=== PATIENT | female | born 1965 | race Caucasian/White ===

== ENCOUNTER 2024-01-09 16:22 | Outpatient (CLI) | payer OTHER, SELFPAY ==
--- OUTSIDE RECORDS SUMMARY | 2024-01-09 16:24 | XMS_ITS | Clinical Summary ---
Author Organization [facility] Address [place], [place] [address] Care Team Providers Care Hoisting Engineer Pile Driving Name Role Phone Simón Chiu MD Primary Care Provider [phone] Allergies Active Allergy Reactions Criticality Noted Date Comments Allergenic Extracts Itching Low 02/22/2019 Cephalosporins Rash Low 02/22/2019 Grass Pollen Itching Low 02/22/2019 House Dust Other - Describe In Comment Field Low 02/22/2019 Unlisted Allergen (Include Detail In Comments) Rash Low 02/22/2019 Penicillin V Rash Low 02/22/2019 Medications Medication Sig Dispensed Refills Start Date End Date Status PROAIR HFA 90 MCG/ACTUATION AEROSOL INHALER INHALE TWO PUFFS EVERY 4 TO 6 HOURS NEEDED 9 0 09/28/2006 Active albuterol HFA 90 mcg/actuation inhaler Every 6 Hours as needed Active Active Problems No known active problems Encounters Date Type Department Care Team Description 01/01/2024 Lab Requisition [facility] [phone] Cassandra Farnsworth, EQUIPMENT WASHER from Last 3 Months Immunizations Name Administration Dates Next Due Influenza, IIV3 (Age >=3 years) 03/14/20 05,03/15/2004,03/27/2003,04/27/2002, 03/15/2001 Td (Age >=7 Years) 03/26/1996 Social History Tobacco Use Types Packs/Day Years Used Date Smoking Tobacco: Never Smokeless Tobacco: Never Tobacco Cessation:Counseling Given: Yes Alcohol Use Standard Drinks/Week Comments Yes 0 (1 standard drink = 0.6 oz pur e alcohol) Sex and Gender Information Value Date Recorded Sex Assigned at Not on file Gender Identity Not on file Sexual Orientation Not on file Obstetrics History Last Filed Vital Signs Vital Sign Reading Time Taken Comments Blood Pressure 123/82 03/25/2019 9:19 AM CDT Pulse 65 03/25/2019 9:19 AM CDT Temperature 36.6 ??C (97.8 ??F) 03/25/2019 9:19 AM CD T Respiratory Rate - - Oxygen Saturation 98% 03/25/2019 9:19 AM CDT Inhaled Oxygen Concentration - - Weight 71.1 kg (156 lb 12.8 oz) 02/22/2019 9:30 AM CDT Height 162.5 cm (5' 3.98) 02/22/2019 9:30 AM CD T Body Mass Index 26.93 02/22/2019 9:30 AM CDT Plan of Treatment Health Maintenance Due Date Last Done Comments Tdap 1976 Depression screening for age 12+ 1977 HIV for age 15-65 1980 Hepatitis C screening for age 18-79 1983 Tetanus booster 03/26/2006 03/26/1996 Colonoscopy through age 75 2010 Lipids for age 45-75 2010 Mammogram for age 45-75 2010 Zoster (shingles) series for age 50+ (1 of 2) 2015 BMI (ht and wt on same day) for age 18+ 02/23/2020 02/22/2019 COVID-19 vaccine series (2022- season) 2023 Influenza for age 50-64 01/28/2024 03/14/20 05, 03/15/2004, 03/27/2003, Additional history exists Pap test for age 21-65 12/28/2026 4, 02/19/2019, 02/19/2019, Additional history exists Pneumococcal series for age 6-64 Aged Out No longer eligible based on patient's age to complete this topic Procedures Procedure Name Priority Date/Time Associated Diagnosis Comments LAB TRACKING EVENT Routine 12/29/2023 1: 58 PM CDT HPV THIN PREP Routine 12/29/2023 1:50 PM CDT from Last 3 Months Results * LAB TRACKING EVENT (12/29/2023 1:58 PM CDT) Other (Other) Client Collect / Unknown 12/29/2023 1:58 PM CDT 01/01/2024 3:36 PM CDT Cassandra Farnsworth NP LAB BILL ONLY Performing Organization Address City/[facility]/ZIP Co de Phone Number [facility] [address] [place] [address], * HPV HIGH RISK (12/29/2023 1:50 PM CDT) TYPE 16 Negative Negative 01/03/2024 4:20 PM CDT [facility] TYPE 18 Negative Negative 01/03/2024 4:20 PM CDT [facility] OTHER HIGH RISK TYPES Negative Negative 01/03/2024 4:20 PM CDT [facility] Other (Cervical) 12/29/2023 1:50 PM CDT 01/02/2024 12:45 PM CDT Narrative [facility] - 01/03/2024 4:20 PM CDT HPV types 16, 18, 31, 33, 35, 39, 45, 51, 52, 56, 58, 59, 66 and 68 DNA were undetectable or below the pre-set threshold. Methodology: Jani Erica 4800 HPV Test Cassandra Farnsworth NP MICROBIOLOGY Performing Organization Address [facility] Co de Phone Number [facility] [address] [place] [address], from Last 3 Months Care Teams Hoisting Engineer Pile Driving Relationship Specialty Start Date End Date Simón Chiu MD [address] [place] [id number] PCP - General Internal Medicine 02/22/19
--- NOTE | 2024-01-09 16:40 | CRLHL7_ITS ---
For Patients: As a result of the Century Cures Act, medical imaging exams and procedure reports are released immediately into your electronic medical record. You may view this report before your referring provider. If you have questions, please contact your health care provider. BILATERAL SCREENING MAMMOGRAM WITH COMPUTER-AIDED DETECTION AND TOMOSYNTHESIS TECHNIQUE: CC and MLO views were obtained. These mammographic images have been obtained using full-field digital technique. These mammographic images were interpreted with the benefit of computer-aided detection. Breast Tomosynthesis was used in this interpretation. COMPARISON FILM: 04/04/19, 03/27/19, 03/26/18. FINDINGS: There are areas of scattered fibroglandular density. IMPRESSION: There is no radiographic evidence for malignancy. ASSESSMENT: BI-RADS Category 1: Negative RECOMMENDATION: Routine screening mammogram in 1 year. A lay language report of this examination will be provided to the patient. Dakota Sykes M.D. Diagnostic Radiologist [email or web address] Transcribed: 6:09 p.[email or web address] stokes/Dictated by: Dakota Sykes MD @ 01/11/2024 9:16:00 AM (Electronically Signed)
== END 2024-01-09 16:23 | disposition home or self-care (01) ==
LOC: MAMMO 16:23
PROVIDERS: PCP Internal Medicine; Visit Provider Registered Nurse
DX: Z12.31 Encounter for screening mammogram for malignant neoplasm of breast (principal)
CPT/HCPCS: 77063; 77067